=== PATIENT | female | born 1980 | race Caucasian/White ===

== ENCOUNTER 2017-08-16 09:37 | Emergency (ER) | payer BC, OTHER ==
--- NOTE | 2017-08-16 11:21 | UC ---
Eye Complaint HPI - HPI Summary HPI Summary: Pty c/o spontaneous left eye pain, redness and purulent drainage. - History of Current Complaint Stated Complaint: PINK EYE Time Seen by Provider: 08/16/17 10:56 Hx Obtained From: Patient Hx Last Menstrual Period: 08/15/17 ?: No Onset/Duration: Sudden Onset, Lasting Days, Still Present Timing: Constant Severity Initially: Mild Severity Currently: Mild Location of Injury: Conjunctiva Character: Dull Aggravating Factor(s): Contact Lens Alleviating Factor(s): Eye Drops Associated Signs And Symptoms: Positive: Drainage (Purulent) - Risk Factors Penetrating Injury Risk Factor: Negative Globe Rupture Risk Factors: Negative Acute Glaucoma Risk Factors: Negative Optic Artery Occlusion Risk Factors: Negative - Allergies/Home Medications Allergies/Adverse Reactions: Allergies Allergy/AdvReac Type Severity Reaction Status Date / Time Sulfa Antibiotics Allergy Difficulty Verified 08/16/17 10:57 Breathing/Wheezing Home Medications: Home Medications Copper (Iud) [[employer] Intrauterine [employer]] 1 iud IU 08/16/17 [History] PMH/Surg Hx/FS Hx/Imm Hx Previously Healthy: Yes - Surgical History Surgical History: Yes Surgery Procedure, Year, and Place: [id number] - Family History Known Family History: Positive: Cardiac Disease - Social History Occupation: Employed Full-time Lives: With Family Alcohol Use: Occasionally Substance Use Type: None Smoking Status (MU): Light Every Day Tobacco Smoker Type: Cigarettes Amount Used/How Often: 1/2 PPD Have You Smoked in the Last Year: Yes Household Exposure Type: Cigarettes Review of Systems Constitutional: Negative Skin: Negative Eyes: Drainage - left, Eye Redness - left ENT: Negative Respiratory: Negative Cardiovascular: Negative Gastrointestinal: Negative Genitourinary: Negative Motor: Negative Neurovascular: Negative Musculoskeletal: Negative Neurological: Negative Psychological: Negative Is Patient Immunocompromised?: No All Other Systems Reviewed And Are Negative: Yes Physical Exam Triage Information Reviewed: Yes Appearance: Well-Appearing Vital Signs: Initial Vital Signs Temp 98.1 F 08/16/17 10:59 Pulse 78 08/16/17 10:59 Resp 16 08/16/17 10:59 BP 120/75 08/16/17 10:59 Pulse Ox 100 08/16/17 10:59 Vital Signs Reviewed: Yes Eyes: Positive: Conjunctiva Inflamed, Discharge - scant yellow ENT Exam: Normal Dental Exam: Normal Neck exam: Normal Respiratory Exam: Normal Cardiovascular Exam: Normal Musculoskeletal Exam: Normal Neurological Exam: Normal Psychological Exam: Normal Skin Exam: Normal Eye Complaint Course/Dx - Differential Dx/Diagnosis Differential Diagnosis/HQI/PQRI: Conjunctivitis, Corneal Abrasion Provider Diagnoses: conjunctivitis Discharge - Discharge Plan Condition: Stable Disposition: HOME Prescriptions: Ofloxacin 0.3%(Ophth)(Nf) [Ocuflox OPTH 0.3%(NF)] 2 drop BOTH EYES Q8H #1 btl Patient Education Materials: Conjunctivitis (ED) Referrals: DAGOBERTO Martins [Primary Care Provider] - If Needed
[2017-08-16 11:45] VITALS: BP 120/75
== END 2017-08-16 11:27 | disposition home or self-care (01) ==
LOC: UCCORT 09:37
DX: H10.32 Unspecified acute conjunctivitis, left eye (principal); Z88.2 Allergy status to sulfonamides; F17.210 Nicotine dependence, cigarettes, uncomplicated
CPT/HCPCS: 99212; G0463